=== PATIENT | female | born 1950 | race Caucasian/White ===

== ENCOUNTER → 2021-05-16 | Outpatient (CLI) | payer BC ==
[~2021-05-16] MED LIST: BACTROBAN 22GM22 GM TOP; CLOBETASOL0.05% TOP; DOXYCYCLINE 10100 MG PO; ESTROGEN; LEVAQUIN 5500 MG/TAB PO; METROGEL; PERCOCET 5/321 UDTAB PO; [UNRECOGNIZED DRUG - OTHER]
== END ==
LOC: MC.RAD 12:53
DX: Z12.31 Encounter for screening mammogram for malignant neoplasm of breast (principal); D05.02 Lobular carcinoma in situ of left breast

== ENCOUNTER → 2023-03-22 | Outpatient (CLI) | payer BC | LOC: MC.RAD 10:09 | DX: Z12.31 Encounter for screening mammogram for malignant neoplasm of breast (principal) ==

== ENCOUNTER 2024-05-15 13:41 | Outpatient (CLI) | payer BC ==
[~2024-05-15] VITALS: Ht 167.6 cm; Wt 84.8 kg
[~2024-05-15 13:41] MED LIST changes: +ALAVERT10 M1 PO; +ALEVE 220MG220 MG PO; +BENADRYL ITCH R1 OIN TP; +CHLOR-TABS4 MG PO; +CRESTOR 10MG10 MG PO; +ESTRACE0.1 MG/GM VG; +NASAREL0.025 MG/1 NAS; +PRILOSEC 20MG20 MG PO; +PRINIVIL10 MG PO; +RECLAST5 MG/100 M IV; +TOLCYLEN7.5 ML TP; +TYLENOL 500MG500 MG PO; +ZOVIRAX51 TP; +ZOVIRAX800 MG PO
[2024-05-15] MEDS ORDERED: CITRACAL + D CA1 TAB PO (14:05)
[2024-05-15 14:11] VITALS: BP 120/64; PULSE 77; TEMP 98.7
== END 2024-05-15 14:52 | disposition home or self-care (01) ==
LOC: EUO 13:41
DX: M85.80 Other specified disorders of bone density and structure, unspecified site (principal)
CPT/HCPCS: J3489